=== PATIENT | male | born 1960 | race Caucasian/White ===

== ENCOUNTER 2016-09-29 04:39 | Emergency (ER) | payer OTHER ==
[~2016-09-29] VITALS: Ht 170.2 cm; Wt 97.7 kg
[2016-09-29 04:42] VITALS: BP 196/116; PULSE 69; RESP 16; O2SAT 96
[2016-09-29] MEDS ORDERED: Labetalol 5 mg/mL 4 mL Inj IVPUSH ONE (05:00)
--- NOTE | 2016-09-29 05:00 | ED.REPORT ---
HPI-General Illness Date of Service Sep 29, 2016 ED Provider: Dom Payton MD Patient is a 56 year old male with a history of hypertension on Lisinopril who presents to the ED after he awoke from sleep with a severe left sided headache this morning. The patient states that this headache is "worse than any hangover ". The patient also is very hypertensive on arrival to the ED. He reports taking his Lisinopril as directed "most of the time". Patient reports photophobia but denies sound sensitivity. He denies any recent trauma or injury to his head. He denies a history of migraines. He denies any numbness or weakness in his extremities, changes in mental status, or confusion. Nursing Notes Stated Complaint: HEADACHE Chief Complaint: Neuro Symptoms/ Deficits Nursing Notes Reviewed: Yes Allergies: Coded Allergies: No Known Allergies (Unverified , 09/29/16) Scheduled PRN Rizatriptan ODT ([facility] [employer]) 10 Mg Tablet 10 MG PO [id number] PRN PRN For Headache General Time Seen by MD: 05:00 Chief Complaint Headache Hx Obtained From: Patient Arrived By: Walk-in Sudden in Onset?: No Onset Occurred: Just prior to arrival Symptom Duration: Since onset Location: : Head Quality: Painful Severity: Current: Severe Severity: Maximum: Severe Recent Healthcare: No recent doctor visit, No recent hospitalization Similar Sx Previous: No Past Medical History Past Medical History Reports: Hypertension Denies: Migraines Past Surgical History none reported Smoking History Unknown if Ever Smoker Social History Other Social History: Good social support, Local resident Ambulatory Status Independent Review of Systems Full Review of Systems Eyes: Reports: Photophobia Neurologic: Reports: Headache, Denies: Change LOC, Confusion, Numbness, Weakness Complete sys rev & neg: except as marked. Physical Exam Vital Signs Vital Signs Date Time Temp Pulse Resp B/P Pulse Ox O2 Delivery O2 Flow Rate FiO2 09/29/16 05:32 64 13 175/86 96 Room Air 09/29/16 04:42 36 69 16 196/116 96 Room Air Initial VS: Reviewed Skin: Warm, Dry, No cyanosis Psychiatric: Mood/affect normal, Behavior normal, Normal thought content General/Constitutional: Awake, Alert hypertensive Head / Eyes: Atraumatic, Normocephalic, PERRL Pupils: Positive: Photophobia L, Photophobia R ENT: Airway patent Neck: Supple, Full range of motion, Non-tender Respiratory / Chest: Breath sounds NL, Breath sounds = bilat, No respiratory distress, No rales, No rhonchi, No wheezing Cardiovascular: Heart rate NL, Regular rhythm, Heart sounds NL, No murmurs Abdomen: Soft, Non-tender Upper Extremities Upper Extremity / MS: No deformity, Neurologic intact, Vascular intact Lower Extremity / Pelvis / MS: No deformity, Neurologic intact, Vascular intact Neurologic: Oriented X3, Speech NL, No motor deficits, No sensory deficits, CN II - XII intact, Cerebellar NL Interpretation & Diagnostics Lab Results Interpretation Result Diagram: 09/29/16 0505 09/29/16 0505 Test 09/29/16 05:05 White Blood Count 11.4th/mm3 (3.8-10.1) Red Blood Count 6.42mil/mm3 (4.40-5.80) Hemoglobin 16.3g/dL (13.8-17.2) Hematocrit 47.9% (41.0-50.0) Mean Corpuscular Volume 74.6fL (81-100) Mean Corpuscular Hemoglobin 25.4pg (27.0-35.0) Mean Corpuscular Hemoglobin Concent 34.0% (32.0-37.0) Red Cell Distribution Width 14.3% (12.3-15.4) Platelet Count madeline/L (150-400) Neutrophils (%) (Auto) 82.5% (40-74) Lymphocytes (%) (Auto) 9.9% (14-46) Monocytes (%) (Auto) 5.6% (4-12) Eosinophils (%) (Auto) 1.4% (0-5) Basophils (%) (Auto) 0.4% (0-3) Prothrombin Time 10.0sec (8.1-12.5) Prothromb Time International Ratio 0.94ratio Activated Partial Thromboplast Time 25.6sec (22.8-33.0) Sodium Level 141mEq/L (134-144) Potassium Level 3.9mEq/L (3.5-5.2) Chloride Level 103mEq/L (97-108) Carbon Dioxide Level 23mmol/L (18-29) Blood Urea Nitrogen 15mg/dL (6-24) Creatinine 0.99mg/dL (0.76-1.27) Estimat Glomerular Filtration Rate 84mL/min (>59) Glucose Level 112mg/dL (60-99) Calcium Level 9.0mg/dL (8.5-10.1) Magnesium Level 2.1mg/dL (1.6-2.6) Total Bilirubin 0.8mg/dL (0.0-1.2) Aspartate Amino Transf (AST/SGOT) 17U/L (0-50) Alanine Aminotransferase (ALT/SGPT) 17U/L (0-44) Alkaline Phosphatase 107U/L (25-150) Troponin T 0.010ug/L (0.0-0.011) Total Protein 7.7g/dL (6.4-8.4) Albumin 4.5g/dL (3.4-5.0) Hold Kang Top Tube Received (Received) ECG Interpretation ECG Interpretation: Sinus rhythm, Rate 70 Incomplete right bundle branch block left ventricular hypertrophy Time: 04:56 Interpreted by: ED physician X-Ray Chest Interpretation Chest Xray Interpretation: Impression: Hazy left heart border at the tip, probably cardiac fat pad. No comparison available. View: Portable Interpretation / Wet Read by: Wet read ED physician CT Head Interpretation CONCLUSION: Mild atrophy. Radiologist: Declan Kenyon MD 09/29/2016 - 5:28:08 AM PST Study: Head CT no contrast Interpretation / Wet Read by: Interpret - Radiologist Re-Eval/Medical Decision Med Decision/Clinical Course 56-year-old with a left-sided headache and photophobia presents after waking up with these symptoms. Neurologically is intact. CT scan is negative. No indication of intracranial hemorrhage. This appears to be migraine. He is much improved with routine migraine medicines. Discharged in stable condition for follow-up with PCP. Source of Hx: Old records Time of Eval: 06:10 Patient Status: Condition improved Re-Evaluation/Progress Note: Rechecked the patient, who was informed that his CT scan was normal. He will be treated for a migraine headache. Patient understands and agrees with the plan to be discharged home pending lab evaluation. Discharge instructions and follow-up discussed. All questions were addressed. Return to the ED warnings given. Counseled Regarding: Diagnosis, Lab results, Need for follow-up, When/why to return to ED Discharge & Departure Shift Change Sign-Out Response to Therapy: Improved Primary Impression: Migraine Migraine type: unspecified Status migrainosus presence: without status migrainosus Intractability: not intractable Qualified Code: G43.909 - Migraine, unspecified, not intractable, without status migrainosus Disposition: Home Discharge Condition All VS Reviewed: Yes Condition: Stable Patient Instructions: Migraine Headache (ED) Additional Instructions: You may try [facility] for similar headache. Follow-up with your doctor in the office. Return if any immediate issues. Referrals: Ko Kirby (PCP) Paulina Attestation Portions of this note were transcribed by Cassidy Luke. I, Dr. Payton personally performed the history, physical exam and medical decision-making; I reviewed and confirmed the accuracy of the information in the transcribed note. Signed by: Paulina Sanford, 09/29/2016 0612 copies to: Ko Kirby Christopher W MD Sep 29, 2016 05:00 Cassidy Luke Sep 29, 2016 05:10
[2016-09-29 05:32] VITALS: BP 175/86; PULSE 64; RESP 13; O2SAT 96
[2016-09-29 05:45] LABS: BASOPHILS % (AUTO) 0.4 % (0-3); EOSINOPHILS % (AUTO) 1.4 % (0-5); MONOCYTES % (AUTO) 5.6 % (4-12); Mean Corpuscular Hemoglobin 25.4 pg (27.0-35.0); Mean Corpuscular Volume 74.6 fL (81-100); NEUTROPHILS % (AUTO) 82.5 % (40-74)
[2016-09-29 06:04] LABS: INR 0.94 ratio
[2016-09-29 06:05] LABS: TROPONIN T 0.01 ug/L (0.0-0.011)
[2016-09-29] MEDS ORDERED: Ondansetron 2 mg/mL 2 mL Inj IVPUSH ONE (06:10)
[2016-09-29] MEDS ORDERED: Dexamethasone 10 mg/mL Inj IVPUSH ONE (06:10)
[2016-09-29] MEDS ORDERED: Haloperidol 5 mg/mL Inj IVPUSH ONE (06:10)
[2016-09-29 06:18] LABS: Magnesium 2.1 mg/dL (1.6-2.6)
[2016-09-29] MEDS ORDERED: RIZA10TA23 PO (07:09)
[2016-09-29 07:32] VITALS: BP 140/88; PULSE 68
--- NOTE | 2016-09-29 10:19 | DRSVH ---
PROCEDURE: X-RAY CHEST ONE VIEW, PORTABLE ([id number]) INDICATIONS: headache, HTN TECHNIQUE: One view of the chest was acquired. COMPARISON: None. FINDINGS: Surgical changes and devices: None. Lungs and pleura: No pleural effusions or pneumothorax. Lungs are clear. Mediastinum: Mediastinal contours appear normal. Heart size is normal. Bones and chest wall: No suspicious bony lesions. Overlying soft tissues appear unremarkable. IMPRESSION: No acute cardiopulmonary disease. Dictated by: Matthew Rhoades [facility] Interpreted: Bárbara Cohn MD on 09/29/2016 at 10:19 Transcribed by: BRIGID on 09/29/2016 at 10:19 Approved by: Bárbara Cohn MD, PhD on 09/29/2016 at 16:34
--- NOTE | 2016-09-29 10:35 | DRSVH ---
PROCEDURE: CT BRAIN WITHOUT CONTRAST ([id number]) INDICATIONS: left sided yates, htn TECHNIQUE: Noncontrast 4.5 mm thick angled axial sections acquired from the foramen magnum to the vertex, with c oronal reformats. COMPARISON: None. FINDINGS: Image quality: Excellent. CSF spaces: Basal cisterns are patent. No extra-axial fluid collections. Ventricles are normal in size and shape. Brain: No midline shift. No intracranial masses or hemorrhage. Deutsch-white matter interface is norm al. Skull and face: Calvarium and visualized facial bones are intact, without suspicious lesions. Sinuses: Visualized sinuses and mastoids are clear. IMPRESSION: No acute intracranial disease process. Dictated by: Bárbara Cohn MD, PhD on 09/29/2016 at 10:34 Approved by: Bárbara Cohn MD, PhD on 09/29/2016 at 10:34
== END 2016-09-29 07:09 | disposition home or self-care (01) ==
LOC: SED 04:39
DX: G43.909 Migraine, unspecified, not intractable, without status migrainosus (principal); I10 Essential (primary) hypertension
CPT/HCPCS: 36415; 70450; 71010; 80053; 83735; 84484; 85025; 85610; 85730; 93005; 96374; 96375; 99285; J1100; J1200; J1630; J2405